=== PATIENT | female | born 1955 | race Caucasian/White ===

== ENCOUNTER 2016-10-14 18:37 | Emergency (ER) | payer BC ==
[~2016-10-14] VITALS: Ht 147.3 cm; Wt 51.9 kg
[~2016-10-14 18:37] MED LIST: ANTI-DEPRESSANT
[2016-10-14 18:44] VITALS: Ht 147.3 cm; Wt 51.9 kg
--- OUTSIDE RECORDS SUMMARY | 2016-10-14 18:51 | XMS REPORT | Continuity of Care Document ---
Author Author [facility] Address Unknown Phone Unavailable Allergies Active Description Code Type Severity Reaction Onset Reported/Identified Relationship to Patient Clinical Status Yes codeine Drug N/A nausea Yes Singulair Drug N/A Mood swings/ang Medications Problems Date Dx Coded Attending Type Code Diagnosis Diagnosed By 07/01/2014 Rossy Avery Final V76.12 Other Screening Mammogram Procedures Results Encounters ACCT No. Visit Date/Time Discharge Status Pt. Type Provider Facility Loc./Unit Complaint [id number] 07/01/2014 09:07:00 2014 23:59:00 DIS Outpatient Rossy Avery MAMMO SCREENING
[2016-10-14] MEDS ORDERED: NORMAL SALINE 1,000 ML IV ONE (18:54)
[2016-10-14] MEDS ORDERED: MULT-933 PO (18:58)
[2016-10-14] MEDS ORDERED: CITA10TA7 PO (18:58)
[2016-10-14] MEDS ORDERED: KETOROLAC 30mg/ml INJECTION IV ONE (19:00)
--- NOTE | 2016-10-14 19:10 | ERPDOC ---
Departure Disposition Decision Date: Oct 14, 2016 Disposition Decision Time: 19:57 Disposition: 01 DISCHARGED HOME, SELF-CARE Impression Impression Impression: Primary Impression: Ureterolithiasis Severity: Severe Condition: Improved Seen By: Physician only Referrals: ADA GRIMALDO MD 1 Day Patient Instructions: Kidney Stones (ED) Problems/Meds/Labs Reviewed?: Yes Medications reviewed and manag: Yes Additional Instructions: You have two kidney stones on your right side. You may need surgery to pass them , but they may pass on their own. Take the medications as prescribed. Use ibuprofen for pain; take the norco for pain not controlled with ibuprofen. Follow up with Dr. Grimaldo's office tomorrow. Follow up care ordered?: Yes Mental Status: Alert, Oriented Scripts Tamsulosin HCl (Flomax) 0.4 Mg Capsule 0.4 MG PO HS for 14 Days, #14 CAP Take 1 capsule, by mouth, one time a day at BEDTIME. Prov: OCTOBERJESSICA DO 10/14/16 Hydrocodone/Acetaminophen ([place] 5-325 Tablet) 5-325 Tablet 1 TAB PO Q6HR Y for PAIN, #20 TAB 0 Refills Prov: OCTOBERJESSICA DO 10/14/16 HPI - Female General Chief Complaint: Flank Pain Stated Complaint: POSS KIDNEY STONE Time Seen by Provider: 18:54 Source: patient Exam Limitations: clinical condition HPI - Female Initial Comments 61yo woman presents to the ER with right flank pain. Pain has been present since 1400 today; has not taken anything for the pain. Has a h/o urterolithiasis - this feels the same. Occurred At: home Onset: Rapid, Constant Duration: 6-12 hrs Pain Scale: Now & Worst: 10/10 Severity/Quality: cramping, sharpness, stabbing Location: right flank Radiation: groin Activities at Onset: none Prior Genitourinary Problems: similar symptoms Associated Symptoms: nausea/vomiting, polyuria, urinary frequency Hx of Similar Symptoms: Yes Is Pt now?: No Allergies: Coded Allergies: codeine (Verified Allergy, Unknown, 10/14/16) montelukast sodium (Verified Allergy, Unknown, 10/14/16) Past History Past Medical History Female: kidney stones Psychological: depression Surgical History General: tonsils Reproductive/: other Review of Systems GI Upper Abdomen: nausea Comments frequency, right flank pain All other Systems All Other Systems: Reviewed and Negative Physical Exam General General Nourishment: well nourished, well developed, appears stated age, adult , thin, acute distress General Body Habitus: well groomed Vitals and Pain First Documented Vital Signs Date Time Temp Pulse Resp B/P Pulse Ox O2 Delivery O2 Flow Rate FiO2 10/14/16 18:44 97.4 60 20 158/67 100 Room Air Weight: Kilograms: 51.900 Height (feet): 4 Height (inches): 10.00 Triage Pain Scale: RN VS reviewed by Provider: Yes Supervisory Exam Head: atraumatic Eyes: PERRL Nares: no exudate Neck: trachea midline Chest: symmetric Abdomen: non-distended Musculoskeletal: no deformity or atrophy Neurological: no abnormal movements Skin: pink, dry Psychological: alert, appropriate Differential Diagnoses Considering: Pyelonephritis, Renal Colic, UTI, Other (Ureterolithiasis) Progress Results/Orders Orders Procedure Category Date Status Time Cbc W/Auto LAB 10/14/16 Complete Diff-Reflex Manual 18:54 Bmp - Basic Metabolic LAB 10/14/16 Complete Panel 18:54 Iv Lock (Ed Only) EDM 10/14/16 Transmitted 18:54 Normal Saline (Normal PHA 10/14/16 Complete Saline Iv) 18:54 Ketorolac (Toradol) PHA 10/14/16 Complete 19:00 Ct Renal W/O Contrast CT 10/14/16 Resulted 18:56 Ondansetron Inj PHA 10/14/16 Complete (Zofran) 20:00 Tamsulosin (Flomax PHA 10/14/16 Complete 0.4 Mg) 20:00 Hydrocodone/Apap PHA 10/14/16 Complete 5/325 Prepack ([place] 5 20:00 Ondansetron Odt PHA 10/14/16 Complete (Prepack) (Zofran Odt 20:15 Lab Results Laboratory Tests Test 10/14/16 19:24 White Blood Count 13.3T/MM3 Red Blood Count 4.47M/MM3 Hemoglobin 13.3GM/DL Hematocrit 39.3% Mean Corpuscular Volume 87.9UM3 Mean Corpuscular Hemoglobin 29.8UUG Mean Corpuscular Hemoglobin Concent 33.8GM/DL RDW Standard Deviation 45.7FL Platelet Count 293T/MM3 Mean Platelet Volume 10.1UM3 Immature Granulocyte % (Auto) % Neutrophils (%) (Auto) % Lymphocytes (%) (Auto) % Monocytes (%) (Auto) % Eosinophils (%) (Auto) % Basophils (%) (Auto) % Absolute Immature Granulocyte (auto T/MM3 Absolute Neutrophils (auto) T/MM3 Absolute Lymphocytes (auto) T/MM3 Absolute Monocytes (auto) T/MM3 Absolute Eosinophils (auto) T/MM3 Absolute Basophils (auto) T/MM3 Neutrophils % (Manual) 94.0% Lymphocytes % (Manual) 4.0% Monocytes % (Manual) 2.0% Absolute Neutrophils (Manual) 12.5T/MM3 Lymphocytes # (Manual) 0.5T/MM3 Monocytes # (Manual) 0.3T/MM3 Red Cell Morphology Comment Normal Turbidity < 20 Sodium Level 146MEQ/L Potassium Level 4.0MEQ/L Chloride Level 107MEQ/L Carbon Dioxide Level 19MEQ/L Anion Gap 20MEQ/L Blood Urea Nitrogen 19.0MG/DL Creatinine 0.9MG/DL Glomerular Filtration Rate Calc 63 BUN/Creatinine Ratio 21RATIO Glucose Level 187MG/DL Calculated Osmolality 288MOSM/KG Calcium Level 10.5MG/DL Icterus Index < 2 Chemistry Specimen Hemolysis < 15 Medications Current ED Medications Sodium Chloride (Normal Saline IV) 1,000 ml @ 0 mls/hr Q0M ONCE IV Last administered on 10/14/16 19:20; Start 10/14/16 at 18:54; Stop 10/14/16 at 18:55 ; Status DC Ketorolac Tromethamine (Toradol) 30 mg O ONCE IV Last administered on 19:20; Start 10/14/16 at 19:00; Stop 10/14/16 at 19:01; Status DC Ondansetron HCl (Zofran) 4 mg O ONCE IV Last administered on 10/14/16 19:51; Start 10/14/16 at 20:00; Stop 10/14/16 at 20:01; Status DC Tamsulosin HCl (FLOMAX 0.4 mg) 0.4 mg O ONCE PO Last administered on 20:13; Start 10/14/16 at 20:00; Stop 10/14/16 at 20:01; Status DC Acetaminophen/ Hydrocodone Bitart (NORCO 5 (PrePack)) 1 pack O ONCE SENT HOME Last administered on 10/14/16 20:13; Start 10/14/16 at 20:00; Stop 10/14/16 at 20:01; Status DC Ondansetron HCl (ZOFRAN (PrePack)) 1 pack O ONCE SENT HOME ; Start 10/14/16 at 20:15; Stop 10/14/16 at 20:16; Status Cancel Ondansetron HCl (ZOFRAN ODT (PrePack)) 1 pack O ONCE SENT HOME Last administered on 10/14/16 20:14; Start 10/14/16 at 20:15; Stop 10/14/16 at 20:16 ; Status DC Progress Progress Pt improved with IV toradol. Will d/c to home with flomax, narcotics, and instructions for f/u. Discussed dx, prognosis, tx, and f/u needs with pt who voiced understanding. F/u with Dr. Grimaldo as outpt. Consult/PCP Consult/PCP : Physician Contacted: Dr. Grimaldo Time Called: 19:49 Time of first response: 19:52 Type of discussion: Phone Consult/PCP Discussion Details Routine care, if pts pain is controlled, can give routine outpt tx. Pt may require instrumentation, but will need pain control, flomax, and f/u with Dr. Grimaldo. CT CT : CT: Renal no contrast Interpretation: Abnormal (7mm stone at UPJ and proximal 5mm stone. B/l nephrolithiasis.) JESSICA LEE DO Oct 14, 2016 19:10 OCTOBERJESSICA DO Oct 14, 2016 19:10
--- OUTSIDE RECORDS SUMMARY | 2016-10-14 19:29 | XMS REPORT | Continuity of Care Document ---
Author Author [facility] [place] Address Unknown Phone Unavailable Allergies Active Description Code Type Severity Reaction Onset Reported/Identified Relationship to Patient Clinical Status Yes codeine Drug N/A nausea Yes Singulair Drug N/A Mood swings/ang Medications Problems Date Dx Coded Attending Type Code Diagnosis Diagnosed By 07/01/2014 Rossy Avery Final V76.12 Other Screening Mammogram Procedures Results Encounters ACCT No. Visit Date/Time Discharge Status Pt. Type Provider Facility Loc./Unit Complaint [id number] 07/01/2014 09:07:00 2014 23:59:00 DIS Outpatient Rossy Avery MAMMO SCREENING
[2016-10-14 19:43] LABS: HCT - HEMATOCRIT 39.3 % (36-46); HGB - HEMOGLOBIN 13.3 GM/DL (12-16); MEAN CORPUSCULAR HGB 29.8 UUG (26-34); MEAN CORPUSCULAR HGB CONC(MCHC 33.8 GM/DL (31-37); MEAN CORPUSCULAR VOLUME 87.9 UM3 (80-100); MEAN PLATELET VOLUME 10.1 UM3 (9.4-12.4); RED BLOOD COUNT 4.47 M/MM3 (4.00-5.20); WBC - WHITE BLOOD COUNT 13.3 T/MM3 (4.5-11.0)
[2016-10-14 19:52] LABS: ANION GAP 20 MEQ/L (5-15); BUN/CREATININE RATIO 21 RATIO (6-26); CALCIUM 10.5 MG/DL (8.4-10.2); CHLORIDE 107 MEQ/L (98-107); CO2 - CARBON DIOXIDE 19 MEQ/L (22-30); CREATININE 0.9 MG/DL (0.7-1.2); GLOMERULAR FILTRATION RATE 63; GLUCOSE 187 MG/DL (65-110); SODIUM 146 MEQ/L (134-144)
[2016-10-14 19:55] LABS: LYMPHOCYTES # (MANUAL) 0.5 T/MM3 (1-4.8); MONOCYTES # (MANUAL) 0.3 T/MM3 (0-0.8); NEUTROPHILS #(MANUAL)-ABSOLUTE 12.5 T/MM3 (1.8-7.7); TOTAL CELLS COUNTED 100 %
[2016-10-14] MEDS ORDERED: TAMS-1 PO (19:59)
[2016-10-14] MEDS ORDERED: HYDR-4246 PO (19:59)
[2016-10-14] MEDS ORDERED: HYDROCODONE/APAP 5/325 (PrePack) SENT HOME ONE (20:00)
[2016-10-14] MEDS ORDERED: TAMSULOSIN 0.4 MG CAPSULE PO ONE (20:00)
[2016-10-14] MEDS ORDERED: ONDANSETRON 4mg/2ml INJECTION IV ONE (20:00)
[2016-10-14] MEDS ORDERED: ONDANSETRON LIQ 4mg/5ml #3 (PrePack) SENT HOME ONE (20:15)
[2016-10-14] MEDS ORDERED: ONDANSETRON ODT 4mg #3 (PrePack) SENT HOME ONE (20:15)
[2016-10-14 21:00] VITALS: BP 149/64; PULSE 62; RESP 18; TEMP 97.4; O2SAT 99
--- NOTE | 2016-10-15 08:29 | DI ---
Indication: ITS.REASON: flank pain; h/o renal stones PROCEDURE: CT RENAL W/O CONTRAST: Encounter: Initial Comparison: None Technique: Axial CT images were performed through the abdomen and pelvis without intravenous contrast. Coronal and sagittal two-dimensional reformats. Automated Exposure Control and Iterative Reconstruction dose reducing techniques were utilized. Findings: Linear atelectasis or scarring in the lower lobes. The unenhanced contours of the liver are within normal limits. The gallbladder appears normal. The spleen, pancreas and adrenal glands are normal. Left kidney shows stone debris in the lower pole with some parapelvic cysts but no hydronephrosis. No left ureteral stone. Bladder is normal. Large obstructing 5 x 6 mm stone in the right distal ureter at the ureterovesicular junction with severe hydroureter and moderate to severe hydronephrosis. There are additional 5 and 2 mm stones a couple centimeters proximal to this stone. Additional smaller stones in the right kidney scattered throughout. Bladder is otherwise normal. Uterus is normal. No free fluid or evidence of a bowel obstruction. Bone windows show degenerative change and mild scoliosis in the spine. Impression: 1. Obstructing 5 x 6 mm right distal ureteral stone at the ureterovesicular junction with 2 additional right ureteral stones more proximally. 2. Bilateral nephrolithiasis There is a preliminary report by [facility]. .
== END 2016-10-14 21:00 | disposition home or self-care (01) ==
LOC: ED 18:37
DX: N13.2 Hydronephrosis with renal and ureteral calculous obstruction (principal); Z87.442 Personal history of urinary calculi
CPT/HCPCS: 74176; 80048; 85025; 96361; 96374; 96375; 99284; J1885; J2405; J7030; 36000

== ENCOUNTER → 2016-10-30 | Outpatient (CLI) | payer BC ==
[~2016-10-30] MED LIST changes: -ANTI-DEPRESSANT; +CITA10TA7 PO; +HYDR-4246 PO; +MULT-933 PO; +TAMS-1 PO
--- NOTE | 2016-10-30 14:38 | DI ---
EXAM: US RENAL DATE: 10/30/2016 1:31 PM SITE OF DICTATION: [place]. INDICATION: ITS.REASON: N20.1 RT URETERAL STONE COMPARISON: None available. TECHNIQUE: Multiple real-time grayscale sonographic images were obtained of the right and left kidneys with color flow and spectral analysis. FINDINGS: The right kidney demonstrates normal corticomedullary differentiation and measures 8.9 x 3.2 x 4.4 cm. There is no right sided mass, calculus or hydronephrosis. The left kidney demonstrates normal corticomedullary differentiation and measures 8.9 x 4.1 x 4.0 cm. There is no left sided mass, calculus or hydronephrosis. There is a simple cyst involving the right kidney measuring 0.9 x 0.8 x 0.6 cm. There is a simple cyst involving the left kidney measuring 1.0 x 0.8 x 1.1 cm is. IMPRESSION: Essentially unremarkable bilateral renal ultrasound apart from simple bilateral renal cysts. There is no obvious nephrolithiasis or hydronephrosis. .
--- NOTE | 2016-10-30 15:20 | DI ---
EXAM: KUB DICTATION LOCATION: [place] INDICATION: ITS.REASON: N20.1 RT URETERAL STONE COMPARISON STUDY: None available. FINDINGS: Abdomen: The bowel gas pattern is unremarkable. There is no evidence for bowel obstruction or free intraperitoneal air. No abnormal radiopacities overlying the abdomen. There are few tiny densities demonstrated about the lower and mid portions of both kidneys which may reflect bowel contents or tiny nonobstructing renal calculi. There are no calculi in expected course of the ureters or overlying the bladder. Skeletal Structures: There is moderate spondylosis demonstrated in the lower lumbar spine. IMPRESSION: 1. Nonobstructive bowel gas pattern. 2. Subtle radiopacities overlying the lower and mid portions of both kidneys may reflect tiny nonobstructing renal calculi or bowel contents. 3. Moderate spondylosis demonstrated in the lower lumbar spine. .
== END ==
LOC: IMA 13:22
PROVIDERS: ATTEND Specialist
DX: N28.1 Cyst of kidney, acquired (principal); M47.816 Spondylosis without myelopathy or radiculopathy, lumbar region